=== PATIENT | female | born 1950 | race Caucasian/White ===

== ENCOUNTER 2017-05-01 13:15 | Emergency (ER) | payer SELFPAY ==
[~2017-05-01] VITALS: Ht 147.3 cm; Wt 68.0 kg
[2017-05-01 13:15] VITALS: BP 139/73
--- NOTE | 2017-05-01 13:15 | NUR ---
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 WAITING FOR MD ANDERSON.
--- NOTE | 2017-05-01 13:47 | NUR ---
URINE COLLECTED SENT TO LAB
[2017-05-01 13:58] LABS: APPEARANCE,URINE Clear (CLEAR); BILIRUBIN,URINE Negative (NEGATIVE); BLOOD, URINE Moderate Ery/uL (NEGATIVE); COLOR,URINE Yellow (YELLOW); KETONES,URINE Negative (NEGATIVE); LEUKOCYTE ESTERASE ,URINE Trace (NEGATIVE); NITRITE, URINE Negative (NEGATIVE); PROTEIN,URINE Negative (NEGATIVE); UGLUCOSE Negative (NEGATIVE); UROBILINOGEN,URINE 0.2 EU/dL (0.2)
[2017-05-01] MEDS ORDERED: IV NS 0.9% 1,000 ML BAG IV ONE (14:30)
[2017-05-01] MEDS ORDERED: KETOROLAC TROMETHAMINE INJ 30 MG/ML VIAL IV ONE (14:30)
[2017-05-01] MEDS ORDERED: ONDANSETRON HCL/PF 4 MG/2 ML VIAL IVP ONE (14:30)
[2017-05-01 14:43] LABS: BACTERIA,URINE Rare /HPF (None Seen); SQUAMOUS EPITHELIAL CELL,UR Few /HPF (None Seen)
[2017-05-01] MEDS ORDERED: KETOROLAC TROMETHAMINE 15 MG/ML VIAL ONE (14:46)
[2017-05-01] MEDS ORDERED: ONDANSETRON HCL/PF 4 MG/2 ML VIAL ONE (14:47)
[2017-05-01 14:50] LABS: BASOPHILS % (AUTO) 0.4 % (0.0-2.0); EOSINOPHILS # (AUTO) 0.1 /CMM (0.0-0.7); EOSINOPHILS % (AUTO) 1.2 % (0.0-6.0); HEMATOCRIT 42 % (33-45); HEMOGLOBIN 14.1 g/dL (11.5-14.8); LYMPHOCYTES # (AUTO) 2.6 /CMM (0.8-4.8); LYMPHOCYTES % (AUTO) 31.9 % (20.0-44.0); MEAN CORPUSCULAR HEMOGLOBIN 28 PG (26.0-33.0); MEAN CORPUSCULAR HGB CONC 33 g/dl (31.0-36.0); MEAN CORPUSCULAR VOLUME 84 fL (82-100); MONOCYTES # (AUTO) 0.8 /CMM (0.1-1.30); MONOCYTES % (AUTO) 9.8 % (2.0-12.0); NEUTROPHILS # (AUTO) 4.7 /CMM (1.8-8.9); NEUTROPHILS % (AUTO) 56.7 % (43.0-81.0); PLATELET COUNT (AUTO) 266 /CMM (150-450); RDW COEFFICIENT OF VARIATION 14.2 (11.5-15.0); RED BLOOD CELL COUNT(AUTO) 5.06 MIL/uL (4.0-5.2); WHITE BLOOD COUNT (AUTO) 8.2 K/uL (4.3-11.0)
[2017-05-01 15:00] LABS: CALCIUM, SERUM 9.7 mg/dL (8.5-10.1); CREATININE 0.6 mg/dL (0.6-1.3); POTASSIUM 3.9 mmol/L (3.5-5.1)
[2017-05-01 15:05] LABS: ALBUMIN 3.6 g/dL (3.4-5.0); BILIRUBIN,DIRECT 0.1 mg/dL (0.0-0.2); BILIRUBIN,TOTAL 0.3 mg/dL (0.2-1.0); TOTAL PROTEIN, SERUM 7.1 g/dL (6.4-8.2)
== END 2017-05-01 16:45 | disposition home or self-care (01) ==
LOC: ER 13:20
DX: N81.4 Uterovaginal prolapse, unspecified (principal); M54.5 Low back pain; E78.00 Pure hypercholesterolemia, unspecified; E78.5 Hyperlipidemia, unspecified
CPT/HCPCS: 36415; 80048; 80076; 81001; 83690; 85025; 96361; 96374; 96375; 99284; A4606; J1885; J2405; J7030; Z7610; 81000-TC